=== PATIENT | female | born 2000 | race Caucasian/White ===

== ENCOUNTER 2021-02-18 14:02 | Outpatient (CLI) | payer OTHER | END 2021-02-18 14:03 | disposition home or self-care (01) | LOC: CSHULT 14:02 | PROVIDERS: ATTEND Pediatrics | DX: D17.9 Benign lipomatous neoplasm, unspecified (principal) | CPT/HCPCS: 76700 ==

== ENCOUNTER 2023-10-12 09:05 | Outpatient (CLI) | payer BC | END 2023-10-12 09:06 | disposition home or self-care (01) | LOC: CSHULT 09:05 | PROVIDERS: ATTEND Nurse Practitioner Family | DX: R10.9 Unspecified abdominal pain (principal) | CPT/HCPCS: 76770 ==